=== PATIENT | female | born 1955 | race Caucasian/White ===

== ENCOUNTER 2021-02-19 11:40 | Outpatient (CLI) | payer OTHER, SELFPAY ==
[2021-02-19 12:37] LABS: Basophils Absolute Auto 0.1 K/mm3 (0.0-0.1); Basophils Percent Auto 0.8 % (0.2-1.2); Eosinophils Absolute Auto 0.4 K/mm3 (0-0.3); Eosinophils Percent Auto 6.5 % (0-4.4); Hematocrit 33.5 % (37.0-47.0); Hemoglobin 11.6 g/dL (12.0-15.0); Immature Granulocyte Absolute 0.04 K/mm3 (0.00-0.031); Immature Granulocyte Percent A 0.6 % (0-0.5); Lymphocytes Absolute Auto 2.27 K/mm3 (0.9-3.2); Lymphocytes Percent Auto 36.2 % (18.3-44.2); Mean Corpuscular HGB Conc 34.6 g/dl (32-36); Mean Corpuscular Hemoglobin 31.9 pg (26-34); Mean Platelet Volume 10.6 fl (7.4-10.4); Monocytes Absolute Auto 0.5 K/mm3 (0.1-0.6); Monocytes Percent Auto 7.3 % (2.6-8.5); Neutrophils Percent Auto 48.6 % (45.5-73.1); Platelet Count Result 300 k/mm3 (150-375); Red Blood Count 3.64 M/mm3 (4.2-5.4); White Blood Count 6.3 K/mm3 (4.5-10.0)
[2021-02-19 13:14] LABS: Alanine Aminotransferase 20 U/L (4-35); Albumin Level 5.2 g/dL (3.5-5.1); Alkaline Phosphatase 80 U/L (38-126); Anion Gap 14 mmol/L (8-16); Aspartate Amino Transferase 28 U/L (14-36); Bilirubin,Total 0.4 mg/dL (0.2-1.3); Blood Urea Nitrogen 21 mg/dL (7-17); Calcium 9.9 mg/dL (8.4-10.2); Carbon Dioxide 26 mmol/L (22-30); Chloride 99 mmol/L (98-107); Estimated Glomerular Filt Rate 38; Glucose 134 mg/dL (65-110); HDL Direct 62 mg/dL; LDL Cholesterol Direct 229 mg/dL; Potassium 2.9 mmol/L (3.4-5.0); Sodium 139 mmol/L (137-145); Triglycerides 309 mg/dL (<150)
[2021-02-19 13:15] LABS: Cholesterol 360 mg/dL (0-200); Free T4 Free Thyroxine 0.32 ng/mL (0.78-2.19); Vitamin D 25 Hydroxy 19.3 ng/mL
[2021-02-19 13:32] LABS: Total Triiodothyronine (T3) 0.75 NG/ML (0.97-1.69)
[2021-02-19 13:48] LABS: Thyroid Stimulating Hormone > 100.000 uIU/mL (0.465-4.680)
== END 2021-02-19 11:41 | disposition home or self-care (01) ==
PROVIDERS: PCP Family Medicine; Visit Provider Family Medicine
DX: M62.81 Muscle weakness (generalized) (principal); E55.9 Vitamin D deficiency, unspecified; I10 Essential (primary) hypertension; E08.9 Diabetes mellitus due to underlying condition without complications; E78.3 Hyperchylomicronemia
CPT/HCPCS: 36415; 80053; 80061; 82306; 84439; 84443; 84480; 85025

== ENCOUNTER 2021-03-15 17:12 | Outpatient (CLI) | payer OTHER, SELFPAY ==
[2021-03-15 17:58] LABS: Basophils Percent Auto 0.5 % (0.2-1.2); Eosinophils Absolute Auto 0.3 K/mm3 (0-0.3); Eosinophils Percent Auto 4.6 % (0-4.4); Hematocrit 33.7 % (37.0-47.0); Hemoglobin 11.2 g/dL (12.0-15.0); Immature Granulocyte Absolute 0.02 K/mm3 (0.00-0.031); Immature Granulocyte Percent A 0.3 % (0-0.5); Lymphocytes Absolute Auto 1.55 K/mm3 (0.9-3.2); Lymphocytes Percent Auto 25.7 % (18.3-44.2); Mean Corpuscular HGB Conc 33.2 g/dl (32-36); Mean Corpuscular Hemoglobin 32.2 pg (26-34); Mean Corpuscular Volume 96.8 fl (80-100); Mean Platelet Volume 10.7 fl (7.4-10.4); Monocytes Absolute Auto 0.5 K/mm3 (0.1-0.6); Monocytes Percent Auto 8.3 % (2.6-8.5); Neutrophils Absolute Auto 3.7 K/mm3 (1.3-6.7); Neutrophils Percent Auto 60.6 % (45.5-73.1); Platelet Count Result 298 k/mm3 (150-375); Red Blood Count 3.48 M/mm3 (4.2-5.4)
[2021-03-15 18:10] LABS: Alanine Aminotransferase 18 U/L (4-35); Alkaline Phosphatase 57 U/L (38-126); Anion Gap 10 mmol/L (8-16); Aspartate Amino Transferase 28 U/L (14-36); Bilirubin,Total 0.4 mg/dL (0.2-1.3); Blood Urea Nitrogen 29 mg/dL (7-17); Calcium 9.1 mg/dL (8.4-10.2); Carbon Dioxide 29 mmol/L (22-30); Chloride 98 mmol/L (98-107); Estimated Glomerular Filt Rate 27; Glucose 107 mg/dL (65-110); Potassium 3.2 mmol/L (3.4-5.0); Sodium 137 mmol/L (137-145)
== END 2021-03-15 17:13 | disposition home or self-care (01) ==
LOC: ANHLAB 17:15
PROVIDERS: PCP Family Medicine; Visit Provider Family Medicine
DX: E78.5 Hyperlipidemia, unspecified (principal); E55.9 Vitamin D deficiency, unspecified; E87.6 Hypokalemia
CPT/HCPCS: 36415; 80053; 85025

== ENCOUNTER 2022-02-23 12:06 | Outpatient (CLI) | payer MEDICARE, OTHER, SELFPAY ==
[2022-02-23 12:57] LABS: Basophils Percent Auto 0.5 % (0.2-1.2); Eosinophils Absolute Auto 0.2 K/mm3 (0-0.3); Eosinophils Percent Auto 3.4 % (0-4.4); Hemoglobin 12.3 g/dL (12.0-15.0); Immature Granulocyte Absolute 0.01 K/mm3 (0.00-0.031); Immature Granulocyte Percent A 0.2 % (0-0.5); Lymphocytes Absolute Auto 2.29 K/mm3 (0.9-3.2); Lymphocytes Percent Auto 38.8 % (18.3-44.2); Mean Corpuscular HGB Conc 32.4 g/dl (32-36); Mean Corpuscular Hemoglobin 29.7 pg (26-34); Mean Corpuscular Volume 91.8 fl (80-100); Mean Platelet Volume 10.3 fl (7.4-10.4); Monocytes Absolute Auto 0.4 K/mm3 (0.1-0.6); Monocytes Percent Auto 6.3 % (2.6-8.5); Neutrophils Percent Auto 50.8 % (45.5-73.1); Platelet Count Result 358 k/mm3 (150-375); Red Blood Count 4.14 M/mm3 (4.2-5.4); Red Cell Distribution Width 13.9 % (11.5-14.5); White Blood Count 5.9 K/mm3 (4.5-10.0)
[2022-02-23 13:09] LABS: Alanine Aminotransferase 38 U/L (6-35); Alkaline Phosphatase 45 U/L (38-126); Anion Gap 12 mmol/L (8-16); Aspartate Amino Transferase 36 U/L (14-36); Bilirubin,Total 0.5 mg/dL (0.2-1.3); Blood Urea Nitrogen 23 mg/dL (7-17); Calcium 9.3 mg/dL (8.4-10.2); Carbon Dioxide 26 mmol/L (22-30); Chloride 105 mmol/L (98-107); Cholesterol 195 mg/dL (0-200); Estimated Glomerular Filt Rate 32; Glucose 103 mg/dL (65-110); HDL Direct 72 mg/dL; Potassium 3.6 mmol/L (3.4-5.0); Sodium 143 mmol/L (137-145); Triglycerides 105 mg/dL (<150)
[2022-02-23 13:20] LABS: LDL Cholesterol Direct 87 mg/dL
[2022-02-23 13:37] LABS: Free T4 Free Thyroxine 1.62 ng/mL (0.78-2.19)
[2022-02-23 13:40] LABS: Total Triiodothyronine (T3) 0.84 NG/ML (0.97-1.69)
== END 2022-02-23 12:07 | disposition home or self-care (01) ==
LOC: ANHLAB 12:17
PROVIDERS: Nurse Practitioner Adult Health; PCP Family Medicine; Visit Provider Family Medicine
DX: I12.9 Hypertensive chronic kidney disease with stage 1 through stage 4 chronic kidney disease, or unspecified chronic kidney disease (principal); N18.30 Chronic kidney disease, stage 3 unspecified; E78.5 Hyperlipidemia, unspecified; E03.9 Hypothyroidism, unspecified
CPT/HCPCS: 36415; 80053; 80061; 82306; 84439; 84443; 84480; 85025

== ENCOUNTER 2022-08-21 14:09 | Outpatient (CLI) | payer MEDICARE, OTHER, SELFPAY ==
[2022-08-21 14:39] LABS: Basophils Percent Auto 0.3 % (0.2-1.2); Eosinophils Absolute Auto 0.1 K/mm3 (0-0.3); Eosinophils Percent Auto 2.2 % (0-4.4); Hematocrit 38.1 % (37.0-47.0); Hemoglobin 12.1 g/dL (12.0-15.0); Immature Granulocyte Absolute 0.02 K/mm3 (0.00-0.031); Immature Granulocyte Percent A 0.3 % (0-0.5); Lymphocytes Percent Auto 39.9 % (18.3-44.2); Mean Corpuscular HGB Conc 31.8 g/dl (32-36); Mean Corpuscular Hemoglobin 28.8 pg (26-34); Mean Corpuscular Volume 90.7 fl (80-100); Mean Platelet Volume 10.3 fl (7.4-10.4); Monocytes Absolute Auto 0.4 K/mm3 (0.1-0.6); Monocytes Percent Auto 6.7 % (2.6-8.5); Neutrophils Percent Auto 50.6 % (45.5-73.1); Platelet Count Result 340 k/mm3 (150-375); Red Cell Distribution Width 14.8 % (11.5-14.5)
[2022-08-21 15:23] LABS: Creatinine Urine 129.2 mg/dL
[2022-08-21 15:27] LABS: MALB Creatinine Ratio 28.3 mg/g (0-30); Microalbumin Urine Random 36.6 mg/L (0-16.7)
[2022-08-21 15:59] LABS: Free T4 Free Thyroxine 2.15 ng/mL (0.78-2.19); Vitamin D 25 Hydroxy 20.4 ng/mL
[2022-08-21 18:22] LABS: LDL Cholesterol Direct 107 mg/dL
[2022-08-21 18:38] LABS: Alanine Aminotransferase 39 U/L (6-35); Alkaline Phosphatase 51 U/L (38-126); Anion Gap 9 mmol/L (8-16); Aspartate Amino Transferase 38 U/L (14-36); Bilirubin,Total 0.5 mg/dL (0.2-1.3); Blood Urea Nitrogen 19 mg/dL (7-17); Calcium 9.2 mg/dL (8.4-10.2); Carbon Dioxide 24 mmol/L (22-30); Chloride 108 mmol/L (98-107); Cholesterol 201 mg/dL (0-200); Estimated Glomerular Filt Rate 41; Glucose 94 mg/dL (65-110); HDL Direct 58 mg/dL; Potassium 3.7 mmol/L (3.4-5.0); Sodium 141 mmol/L (137-145); Triglycerides 147 mg/dL (<150)
[2022-08-21 18:42] LABS: Total Triiodothyronine (T3) 1.02 NG/ML (0.97-1.69)
== END 2022-08-21 14:10 | disposition home or self-care (01) ==
PROVIDERS: PCP Family Medicine; Visit Provider Nurse Practitioner Adult Health
DX: E78.5 Hyperlipidemia, unspecified (principal); I12.9 Hypertensive chronic kidney disease with stage 1 through stage 4 chronic kidney disease, or unspecified chronic kidney disease; N18.30 Chronic kidney disease, stage 3 unspecified; E55.9 Vitamin D deficiency, unspecified; E03.9 Hypothyroidism, unspecified
CPT/HCPCS: 36415; 80053; 80061; 82043; 82306; 84439; 84443; 84480; 85025

== ENCOUNTER 2023-03-08 14:35 | Outpatient (CLI) | payer MEDICARE, OTHER, SELFPAY ==
[2023-03-08 15:43] LABS: Basophils Percent Auto 0.5 % (0.2-1.2); Eosinophils Absolute Auto 0.1 K/mm3 (0-0.3); Eosinophils Percent Auto 1.3 % (0-4.4); Hematocrit 41.8 % (37.0-47.0); Hemoglobin 13.3 g/dL (12.0-15.0); Immature Granulocyte Absolute 0.02 K/mm3 (0.00-0.031); Immature Granulocyte Percent A 0.3 % (0-0.5); Lymphocytes Absolute Auto 2.31 K/mm3 (0.9-3.2); Lymphocytes Percent Auto 36.6 % (18.3-44.2); Mean Corpuscular HGB Conc 31.8 g/dl (32-36); Mean Corpuscular Hemoglobin 28.3 pg (26-34); Mean Corpuscular Volume 88.9 fl (80-100); Monocytes Absolute Auto 0.4 K/mm3 (0.1-0.6); Monocytes Percent Auto 5.9 % (2.6-8.5); Neutrophils Absolute Auto 3.5 K/mm3 (1.3-6.7); Neutrophils Percent Auto 55.4 % (45.5-73.1); Platelet Count Result 361 k/mm3 (150-375); Red Cell Distribution Width 13.6 % (11.5-14.5); White Blood Count 6.3 K/mm3 (4.5-10.0)
[2023-03-08 17:47] LABS: Alanine Aminotransferase 64 U/L (6-35); Albumin Level 4.7 g/dL (3.5-5.1); Alkaline Phosphatase 53 U/L (38-126); Anion Gap 14 mmol/L (8-16); Aspartate Amino Transferase 55 U/L (14-36); Bilirubin,Total 0.8 mg/dL (0.2-1.3); Blood Urea Nitrogen 26 mg/dL (7-17); Calcium 10.7 mg/dL (8.4-10.2); Carbon Dioxide 24 mmol/L (22-30); Chloride 105 mmol/L (98-107); Cholesterol 209 mg/dL (0-200); Estimated Glomerular Filt Rate 35; Free T4 Free Thyroxine 3.57 ng/mL (0.78-2.19); Glucose 116 mg/dL (65-110); HDL Direct 58 mg/dL; Potassium 3.8 mmol/L (3.4-5.0); Sodium 143 mmol/L (137-145); Triglycerides 198 mg/dL (<150)
[2023-03-08 18:00] LABS: LDL Cholesterol Direct 109 mg/dL
[2023-03-08 18:19] LABS: Thyroid Stimulating Hormone < 0.015 uIU/mL (0.465-4.680); Total Triiodothyronine (T3) 1.14 NG/ML (0.97-1.69)
== END 2023-03-08 14:36 | disposition home or self-care (01) ==
LOC: ANHLAB 14:44
PROVIDERS: PCP Family Medicine; Visit Provider Family Medicine
DX: E78.5 Hyperlipidemia, unspecified (principal); I10 Essential (primary) hypertension; Z13.29 Encounter for screening for other suspected endocrine disorder
CPT/HCPCS: 36415; 80053; 80061; 84439; 84443; 84480; 85025

== ENCOUNTER 2023-06-07 14:07 | Outpatient (CLI) | payer MEDICARE, OTHER, SELFPAY ==
[2023-06-07 15:19] LABS: Free T4 Free Thyroxine 2.98 ng/mL (0.78-2.19)
[2023-06-07 15:29] LABS: Thyroid Stimulating Hormone < 0.015 uIU/mL (0.465-4.680); Total Triiodothyronine (T3) 0.95 NG/ML (0.97-1.69)
== END 2023-06-07 14:08 | disposition home or self-care (01) ==
LOC: ANHLAB 14:15
PROVIDERS: PCP Family Medicine; Visit Provider Family Medicine
DX: E03.9 Hypothyroidism, unspecified (principal)
CPT/HCPCS: 36415; 84439; 84443; 84480

== ENCOUNTER 2024-04-15 15:05 | Outpatient (CLI) | payer MEDICARE, OTHER, SELFPAY ==
[2024-04-15 15:45] LABS: Basophils Percent Auto 0.3 % (0.2-1.2); Eosinophils Absolute Auto 0.2 K/mm3 (0-0.3); Eosinophils Percent Auto 2.9 % (0-4.4); Hemoglobin 12.2 g/dL (12.0-15.0); Immature Granulocyte Absolute 0.01 K/mm3 (0.00-0.031); Immature Granulocyte Percent A 0.1 % (0-0.5); Lymphocytes Absolute Auto 2.62 K/mm3 (0.9-3.2); Lymphocytes Percent Auto 38.2 % (18.3-44.2); Mean Corpuscular HGB Conc 32.1 g/dl (32-36); Mean Corpuscular Volume 93.4 fl (80-100); Monocytes Absolute Auto 0.4 K/mm3 (0.1-0.6); Monocytes Percent Auto 6.1 % (2.6-8.5); Neutrophils Absolute Auto 3.6 K/mm3 (1.3-6.7); Neutrophils Percent Auto 52.4 % (45.5-73.1); Platelet Count Result 314 k/mm3 (150-375); Red Blood Count 4.07 M/mm3 (4.2-5.4); White Blood Count 6.9 K/mm3 (4.5-10.0)
[2024-04-15 15:56] LABS: Alanine Aminotransferase 39 U/L (6-35); Albumin Level 4.8 g/dL (3.5-5.1); Alkaline Phosphatase 42 U/L (38-126); Anion Gap 15 mmol/L (4-12); Aspartate Amino Transferase 36 U/L (14-36); Bilirubin,Total 0.7 mg/dL (0.2-1.3); Blood Urea Nitrogen 24 mg/dL (7-17); Calcium 9.8 mg/dL (8.4-10.2); Carbon Dioxide 21 mmol/L (22-30); Chloride 105 mmol/L (98-107); Cholesterol 200 mg/dL (0-200); Estimated Glomerular Filt Rate 24; Glucose 109 mg/dL (65-110); HDL Direct 48 mg/dL; Potassium 3.9 mmol/L (3.4-5.0); Sodium 141 mmol/L (137-145); Triglycerides 256 mg/dL (<150)
[2024-04-15 16:06] LABS: LDL Cholesterol Direct 111 mg/dL
[2024-04-15 16:20] LABS: Free T3 3.29 pg/mL (2.45-5.93); Free T4 Free Thyroxine 2.47 ng/dL (0.78-2.19)
[2024-04-15 16:26] LABS: Thyroid Stimulating Hormone 0.129 uIU/mL (0.465-4.680)
[2024-04-15 16:51] LABS: Hepatitis C Virus Antibody Negative (Negative)
== END 2024-04-15 15:06 | disposition home or self-care (01) ==
LOC: ANHLAB 15:08
PROVIDERS: PCP Family Medicine; Visit Provider Registered Nurse
DX: E78.5 Hyperlipidemia, unspecified (principal); I10 Essential (primary) hypertension; E03.9 Hypothyroidism, unspecified; Z11.59 Encounter for screening for other viral diseases
CPT/HCPCS: 36415; 80053; 80061; 84439; 84443; 84481; 85025; 86803